=== PATIENT | female | born 1995 | race Caucasian/White ===

== ENCOUNTER 2017-02-15 20:23 | Emergency (ER) | payer MEDICAID ==
[2017-02-15 20:23] VITALS: BMI 28.3
[2017-02-15 21:25] VITALS: BP 127/84; PULSE 88; RESP 16; TEMP 98; O2SAT 100
[2017-02-15 21:59] LABS: RBC URINE 1 /hpf (0-3); TRANSITIONAL EPITHIAL < 1 /hpf (0-3); URINE BACTERIA FEW (<OCC); URINE BILIRUBIN NEGATIVE (NEGATIVE); URINE BLOOD NEGATIVE (NEGATIVE); URINE COLOR Yellow (YELLOW); URINE GLUCOSE (UA) NORMAL (Normal); URINE KETONE TRACE mg/dL (NEGATIVE); URINE LEUKOCYTE ESTERASE 1+ Leu/uL (Negative); URINE PROTEIN 1+ mg/dL (NEGATIVE); WBC URINE 9 /hpf (0-5)
--- NOTE | 2017-02-15 23:21 | C.PDOC ---
History Of Present Illness 21 year old female who presents to the ER with a complaint of dysuria for 2 weeks, vaginal itchiness, and pain with intercourse for 1 week. Patient reports she has unprotected sex; denies nausea, vomiting, abdominal pain, back pain, CVA pain, fever, or chills. Time Seen by Provider: 02/15/17 21:29 Chief Complaint (Nursing): Female Genitourinary History Per: Patient History/Exam Limitations: no limitations Onset/Duration Of Symptoms: Hrs Current Symptoms Are (Timing): Still Present Quality Of Discomfort: Unable To Describe Associated Symptoms: Urinary Symptoms. denies: Fever, Chills, Nausea, Vomiting , Back Pain Alleviating Factors: None Recent travel outside of the [place]: No Abnormal Vaginal Bleeding: No Past Medical History Reviewed: Historical Data, Nursing Documentation, Vital Signs Vital Signs: Last Vital Signs Temp 98 F 02/15/17 21:23 Pulse 88 02/15/17 21:23 Resp 16 02/15/17 21:23 BP 127/84 02/15/17 21:23 Pulse Ox 100 02/15/17 23:24 - Medical History PMH: Asthma Surgical History: No Surg Hx - [facility] Procedures MANUAL ASSIST DELIV NEC (02/13/14) REPAIR OB LACERATION NEC (02/13/14) Family History: States: Unknown Family Hx (no pertinent family history) - Social History Hx Tobacco Use: No Hx Alcohol Use: No Hx Substance Use: No - Immunization History Hx Tetanus Toxoid Vaccination: No Hx Influenza Vaccination: No Hx Pneumococcal Vaccination: No Review Of Systems Constitutional: Negative for: Fever, Chills Gastrointestinal: Negative for: Nausea, Vomiting, Abdominal Pain Genitourinary: Positive for: Dysuria, Other (Vaginal itchiness) Musculoskeletal: Negative for: Back Pain Physical Exam - Physical Exam Appears: Non-toxic, No Acute Distress Skin: Normal Color, Warm, Dry Head: Atraumatic, Normacephalic Oral Mucosa: Moist Neck: Normal, Supple Chest: Symmetrical, No Tenderness Cardiovascular: Rhythm Regular, No Murmur Respiratory: Normal Breath Sounds, No Rales, No Rhonchi, No Wheezing Gastrointestinal/Abdominal: Soft, No Tenderness Pelvic: No Cervical Motion Tenderness, Adnexal Tenderness (Minimal to left), Other (Clumpy white discharge consistent with yeast infection) Neurological/Psych: Oriented x3, Normal Speech, Normal Cognition ED Course And Treatment O2 Sat by Pulse Oximetry: 100 (Room air) Pulse Ox Interpretation: Normal Medical Decision Making Medical Decision Making: Patient treated for UTI and yeast infection; will follow up for GC/Chlamydia labs. Disposition Counseled Patient/Family Regarding: Studies Performed, Diagnosis, Need For Followup, Rx Given - Disposition Referrals: Dilan Dempsey MD [Medical Doctor] - Disposition: HOME/ ROUTINE Disposition Time: 23:12 Condition: STABLE Additional Instructions: Recommend full STI testing got you and partner; no unprotected sex. Take medicaitons as prescribed. Follow up with your doctor in a few days. Drink increased fluids. Prescriptions: Miconazole Nitrate [Monistat 7] 1 applic VG HS #7 cream.appl Nitrofurantoin Macrocrystals [Macrobid] 100 mg PO BID #14 cap Forms: General Discharge Instructions - Clinical Impression Clinical Impression: Urinary tract infection, Vulvovaginal candidiasis - Scribe Statement The provider has reviewed the documentation as recorded by the Scribe Tomasz Dunn All medical record entries made by the Scribe were at my direction and personally dictated by me. I have reviewed the chart and agree that the record accurately reflects my personal performance of the history, physical exam, medical decision making, and the department course for this patient. I have also personally directed, reviewed, and agree with the discharge instructions and disposition.
== END 2017-02-15 23:27 | disposition home or self-care (01) ==
LOC: C.ER 20:23
DX: N39.0 Urinary tract infection, site not specified (principal); B37.3 Candidiasis of vulva and vagina

== ENCOUNTER 2018-12-04 22:26 | Emergency (ER) | payer MEDICAID ==
[2018-12-04 22:26] VITALS: BMI 28.3
[2018-12-04 22:51] VITALS: TEMP 98.6
--- NOTE | 2018-12-04 23:57 | C.PDOC ---
History Of Present Illness 23 year old female presents to the ED c/o vaginal irritation for the past 3 days. Patient also reports white thick vaginal discharge. Patient states she shaved with a razor yesterday. Patient denies fever, chills, nausea, vomit, abdominal pain, dysuria, hematuria. Time Seen by Provider: 12/04/18 23:03 Chief Complaint (Nursing): Female Genitourinary History Per: Patient History/Exam Limitations: no limitations Onset/Duration Of Symptoms: Days (3) Current Symptoms Are (Timing): Still Present Quality Of Discomfort: "Pain" Associated Symptoms: denies: Nausea, Vomiting, Diarrhea, Urinary Symptoms Recent travel outside of the [place]: No Additional History Per: Patient Abnormal Vaginal Bleeding: No Last Menstral Period: 11/20/18 Past Medical History Reviewed: Historical Data, Nursing Documentation, Vital Signs Vital Signs: Last Vital Signs Temp 98.6 F 12/04/18 22:43 Pulse 85 12/04/18 22:43 Resp 17 12/04/18 22:43 BP 117/79 12/04/18 22:43 Pulse Ox 99 12/04/18 22:43 Primary Care Provider: Non [facility] Provider, - Medical History PMH: Asthma Surgical History: No Surg Hx - [facility] Procedures MANUAL ASSIST DELIV NEC (02/13/14) REPAIR OB LACERATION NEC (02/13/14) Family History: States: Unknown Family Hx (no pertinent family history) - Social History Hx Tobacco Use: No Hx Alcohol Use: No Hx Substance Use: No - Immunization History Hx Tetanus Toxoid Vaccination: No Hx Influenza Vaccination: No Hx Pneumococcal Vaccination: No Review Of Systems Constitutional: Negative for: Fever, Chills Gastrointestinal: Negative for: Nausea, Vomiting, Abdominal Pain Genitourinary: Positive for: Vaginal Discharge, Rash. Negative for: Dysuria, Hematuria, Vaginal Bleeding Skin: Negative for: Rash Physical Exam - Physical Exam Appears: Non-toxic, No Acute Distress Skin: Normal Color, Warm, Dry Head: Atraumatic, Normacephalic Eye(s): bilateral: Normal Inspection Neck: Normal ROM, Supple Chest: Symmetrical Cardiovascular: Rhythm Regular Respiratory: Normal Breath Sounds, No Rales, No Rhonchi, No Wheezing Gastrointestinal/Abdominal: Soft, No Tenderness, No Distention Pelvic: Vaginal Discharge (whitish), No Cervical Motion Tenderness, No Cervix Open, No Adnexal Tenderness, Other (mild erythema, irritation to the labuia majora, and vaginal vault. ) Extremity: Normal ROM Neurological/Psych: Oriented x3, Normal Speech, Normal Cognition Gait: Steady ED Course And Treatment O2 Sat by Pulse Oximetry: 99 (On RA) Pulse Ox Interpretation: Normal Progress Note: Patient was advised to follow up with [facility] for further evaluation. 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 - Scribe Statement The provider has reviewed the documentation as recorded by the Scribe Don Christensen All medical record entries made by the Scribe were at my direction and personally dictated by me. I have reviewed the chart and agree that the record accurately reflects my personal performance of the history, physical exam, medical decision making, and the department course for this patient. I have also personally directed, reviewed, and agree with the discharge instructions and disposition.
[2018-12-05 00:12] VITALS: BP 113/74; PULSE 91; RESP 18
[2018-12-05 02:13] VITALS: O2SAT 99
== END 2018-12-05 00:12 | disposition home or self-care (01) ==
LOC: C.ER 22:26
DX: B37.3 Candidiasis of vulva and vagina (principal)